=== PATIENT | male | born 1990 | race Caucasian/White ===

== ENCOUNTER 2022-03-18 22:10 | Emergency (ER) | payer OTHER, SELFPAY ==
[2022-03-18 22:15] VITALS: BP 144/90; PULSE 87; RESP 18; TEMP 35.3; O2SAT 98; BMI 36.9
--- NOTE | 2022-03-18 22:48 | ED.CHESTPAIN ---
HPI - Chest Pain General Chief Complaint: Chest Pain Stated Complaint: Shoulder/chest pain Time Seen by Provider: 03/18/22 22:25 History of Present Illness HPI narrative: 31 yo young man presenting with left chest area pain. when occurs is intermittent and achy in nature with a sharp aspect. comes and goes. May last between 10 minutes to an hour. No exacerbating or relieving factors. His although does admit has tried heat and ibuprofen which can help when it is present. No pleuritic pain no trauma although he recalls when he 1st noticed that he had stretched a little bit while at rest and then felt a sudden discomfort. He can get some discomfort down into his left upper arm. He will note that sometimes his heart is beating at least harder than normal around this. Admits then to some history of anxiety as well. Agrees that that is probably not what brings this on necessarily. More noticeable when quiet in the evenings. Does not occur every day. Does not necessarily occur multiple times a day. No rashes. No trauma otherwise. No family history of dysrhythmias or sudden cardiac . No Cardiomyopathy Related Data Home Medications Medication Instructions Recorded Confirmed ibuprofen 03/18/22 Allergies Allergy/AdvReac Type Severity Reaction Status Date / Time No Known Drug Allergies Allergy Verified 03/18/22 22:17 Review of Systems Status of ROS Reports: 10 or more systems reviewed and unremarkable except as noted in History and below [facility] Social History Smoking Status: Never smoker How often do you have a drink containing alcohol: monthly or less AUDIT-C Alcohol total score: 1 Non-prescribed substance use: denies use Exam Narrative Exam Narrative: Very pleasant. Positive affect. Large man. Breathing easily. Skin is warm and dry without evidence of trauma. Tattooed outline of Sade on the dorsum of the left foot Moving all extremities without difficulty. Well-perfused with strong pulses peripherally. Neck is supple. Palpation over the chest back and shoulder does not reproduce this discomfort. No swelling or erythema Lungs are clear and breath sounds throughout. No splinting. Cardiovascular was regular rate and rhythm. No murmur rub or gallop appreciated Const Vital Signs, click to edit/add: Vital Signs - 24 hr 03/18/22 22:15 Temperature 95.6 F L Pulse Rate [Left Pulse Oximeter] 87 Respiratory Rate 18 Blood Pressure [Right Upper Arm] 144/90 H Pulse Oximetry 98 Oxygen Delivery Method Room Air Documenting provider has reviewed patient's vital signs: yes Course Course Hospital Course: No interventions needed. Was ordered for EKG Vital Signs Vital signs: Initial Vital Signs Temperature 95.6 F L 03/18/22 22:15 Temperature Source Temporal Artery Scan 03/18/22 22:15 Pulse Rate 87 03/18/22 22:15 Respiratory Rate 18 03/18/22 22:15 Respiratory Depth Normal 03/18/22 22:15 Blood Pressure 144/90 H 03/18/22 22:15 Blood Pressure Mean 108 03/18/22 22:15 Blood Pressure Position Sitting 03/18/22 22:15 Pulse Oximetry 98 03/18/22 22:15 Oxygen Delivery Method 03/18/22 22:15 Vital Signs Temperature 95.6 F L 03/18/22 22:15 Pulse Rate 87 03/18/22 22:15 Respiratory Rate 18 03/18/22 22:15 Blood Pressure 144/90 H 03/18/22 22:15 Pulse Oximetry 98 03/18/22 22:15 Oxygen Delivery Method 03/18/22 22:15 Temperature 95.6 F L 03/18/22 22:15 Pulse Rate 87 03/18/22 22:15 Respiratory Rate 18 03/18/22 22:15 Blood Pressure 144/90 H 03/18/22 22:15 Pulse Oximetry 98 03/18/22 22:15 Oxygen Delivery Method 03/18/22 22:15 MDM - Chest Pain MDM Narrative Medical decision making narrative: Given the lack of persistence absence of exertion lack of reproducibility I am not convinced that a workup here would be useful. EKG was reviewed by me shows normal sinus at 75 without ischemic changes. Am wondering if maybe what is happening is PACs or PVCs and might benefit from Holter monitor for more convincing diagnosis. Mutually agree that he is safe and comfortable to return home and follow up in primary care to consider this further. ECG Data Attestation: I personally reviewed and interpreted this ECG as follows: (Sinus rate of 75. No ischemic changes) Discharge Plan Discharge Clinical Impression: Atypical chest pain Patient Disposition: Home, Self-Care Condition: Stable Additional Instructions: Your EKG looks quite good here. I hope you can find that reassuring. I would still encourage you to get in a little heart pumping exercise daily. Get quality and regular sleep. Stay well hydrated. Follow-up with that primary care visit you have in a week or so to discuss this further. Please return for recurrence of persistent symptoms particularly if they are intensifying, associated with lightheadedness or shortness of breath. Prescriptions: No Action ibuprofen Follow Up/Referrals: Sherri Lopez MD [Primary Care Provider] - Stand Alone Forms: [employer] Info Instructions
== END 2022-03-18 23:18 | disposition home or self-care (01) ==
PROVIDERS: Emergency Provider Family Medicine; PCP Family Medicine
DX: R07.89 Other chest pain (principal)
CPT/HCPCS: 93005; 99283; 99284

== ENCOUNTER 2022-08-26 23:53 | Emergency (ER) | payer OTHER, SELFPAY ==
[2022-08-27 00:01] VITALS: BP 147/73; PULSE 68; RESP 18; TEMP 36.8; O2SAT 99; BMI 34.9
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
[2022-08-27] MEDS: ACETAMINOPHEN 500 MG TABLET 1000 MG PO (00:31)
[2022-08-27 00:46] VITALS: BP 135/74; PULSE 69; RESP 18; TEMP 36.7; O2SAT 99
[2022-08-27 00:47] VITALS: BP 135/74; PULSE 69; RESP 18; TEMP 36.7
== END 2022-08-27 00:47 | disposition home or self-care (01) ==
LOC: ED 08-27 00:42
PROVIDERS: Emergency Provider Family Medicine; PCP Family Medicine
DX: S29.011A Strain of muscle and tendon of front wall of thorax, initial encounter (principal)
CPT/HCPCS: 93005; 99282; 99283; A9270